=== PATIENT | female | born 1955 | race Caucasian/White ===

== ENCOUNTER 2018-10-04 14:06 | Emergency (ER) | payer OTHER ==
[~2018-10-04] VITALS: Ht 167.6 cm; Wt 92.5 kg
[~2018-10-04 14:06] MED LIST: AVANDIA4 MG PO; HCTZ PO; ZEBETA5 MG PO; [UNRECOGNIZED DRUG - OTHER] PO
== END 2018-10-04 19:40 | disposition home or self-care (01) ==
LOC: ER 14:06
DX: J40 Bronchitis, not specified as acute or chronic (principal)